=== PATIENT | male | born 1970 | race Caucasian/White ===

== ENCOUNTER 2017-06-09 10:24 | Emergency (ER) | payer MEDICARE, OTHER ==
[2017-06-09 10:47] VITALS: BP 155/100
--- NOTE | 2017-06-09 11:05 | UC ---
Dental HPI - HPI Summary HPI Summary: Social patient with past root canal on his first bicuspid on right side upper jaw. Feeling and Have since fallen off originally had discomfort before Thanksgiving was treated with antibiotics it resolved he did not seek dental follow-up last night he noticed pain and swelling in the right upper side of his jaw - History of Current Complaint Hx Obtained From: Patient Onset/Duration: Sudden Onset Severity: Mild Pain Intensity: 2 Pain Scale Used: 0-10 Numeric Aggravating Factor(s): Nothing Alleviating Factor(s): OTC Meds Related History: Previous Dental Care on Same Tooth, Swelling <Katarzyna Miguel - Last Filed: 06/09/17 13:27> <Barbara Maki - Last Filed: 06/10/17 20:52> - History of Current Complaint Chief Complaint: UCDentalProblem Stated Complaint: DENTAL PAIN Time Seen by Provider: 06/09/17 10:59 - Allergies/Home Medications Allergies/Adverse Reactions: Allergies Allergy/AdvReac Type Severity Reaction Status Date / Time morphine AdvReac Itching Verified 06/09/17 10:38 Seasonal Allergy Congestion Uncoded 06/09/17 10:38 Home Medications: Home Medications Acetaminophen TAB* [Tylenol TAB*] 3 tab PO ONCE PRN 06/09/17 [History Confirmed 06/09/17] DULoxetine DR CAP* [Cymbalta CAP*] 30 mg PO DAILY 06/09/17 [History Confirmed ] PMH/Surg Hx/FS Hx/Imm Hx Previously Healthy: No - muscular dystrophy Psychological History: Depression Other History Of: HIV - Surgical History Surgical History: Yes Surgery Procedure, Year, and Place: 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, appendectomy(ruptured appendix), cholecystectomy; Multiple Muscle Bioposy - Family History Known Family History: Positive: None - Social History Occupation: Disabled Lives: Alone - Lives alone with housemate for assistance Alcohol Use: Rare Substance Use Type: None Smoking Status (MU): Never Smoked Tobacco - Immunization History Most Recent Influenza Vaccination: 01/26 Most Recent Tetanus Shot: UTD Most Recent Pneumonia Vaccination: 2013 <Katarzyna Miguel - Last Filed: 06/09/17 13:27> Review of Systems Constitutional: Negative Skin: Negative Eyes: Negative ENT: Dental Pain - First upper right bicuspid Respiratory: Negative Cardiovascular: Negative Gastrointestinal: Negative Genitourinary: Negative Motor: Negative Neurovascular: Negative Musculoskeletal: Negative Neurological: Negative Psychological: Negative Is Patient Immunocompromised?: No All Other Systems Reviewed And Are Negative: Yes <Katarzyna Miguel - Last Filed: 06/09/17 13:27> Physical Exam Triage Information Reviewed: Yes Appearance: Well-Appearing, No Pain Distress, Well-Nourished Vital Signs: Initial Vital Signs Temp 97.9 F 06/09/17 10:40 Pulse 88 06/09/17 10:40 Resp 16 06/09/17 10:40 BP 155/100 06/09/17 10:40 Pulse Ox 100 06/09/17 10:40 Vital Signs Reviewed: Yes Eye Exam: Normal Eyes: Positive: Conjunctiva Clear ENT Exam: Normal ENT: Positive: Normal ENT inspection, Hearing grossly normal, Pharynx normal, Dental tenderness, Uvula midline. Negative: Nasal congestion, Trismus, Muffled voice, Hoarse voice, Sinus tenderness Dental Exam: Other Dental: Positive: Percussion Tenderness @ - Tooth #5, Gross Decay/Caries @ - Tooth #5 is missing filling in, Abscess @ - Right upper jaw Neck exam: Normal Neck: Positive: Supple, Nontender Respiratory Exam: Normal Respiratory: Positive: Chest non-tender, No respiratory distress, No accessory muscle use Cardiovascular Exam: Normal Cardiovascular: Positive: RRR, Pulses Normal, Brisk Capillary Refill Musculoskeletal Exam: Other Musculoskeletal: Positive: Strength Limited @ - Due to chronic muscular deterioration secondary to muscular dystrophy, ROM Limited @, Edema @ - Chronic bilateral Neurological Exam: Normal Neurological: Positive: Alert, Muscle Tone Normal - To patient's normal Psychological Exam: Normal Skin Exam: Normal <Katarzyna Miguel - Last Filed: 06/09/17 13:27> Vital Signs: Initial Vital Signs Temp 97.9 F 06/09/17 10:40 Pulse 88 06/09/17 10:40 Resp 16 06/09/17 10:40 BP 155/100 06/09/17 10:40 Pulse Ox 100 06/09/17 10:40 <Barbara Maki - Last Filed: 06/10/17 20:52> Dental Complaint Course/Dx - Course Course Of Treatment: Patient reports Good pain relief with Tylenol this morning. Will add Augmentin and warm compresses. Patient to follow up with [facility] as planned. Patient will follow blood pressure with primary care doctor Dr. Hillman - Differential Dx/Diagnosis Provider Diagnoses: Dental abscess right upper jaw, elevated blood pressure without history of hypertension <Katarzyna Miguel - Last Filed: 06/09/17 13:27> Discharge - Sign-Out/Discharge Documenting (check all that apply): Discharge - Billing Disposition and Condition Condition: STABLE Disposition: HOME <Katarzyna Miguel - Last Filed: 06/09/17 13:27> - Billing Disposition and Condition Condition: STABLE Disposition: HOME <Barbara Maki - Last Filed: 06/10/17 20:52> - Discharge Plan Condition: Stable Disposition: HOME Prescriptions: Amoxicillin/Clavulanate TAB* [Augmentin TAB 875*] 875 mg PO BID #20 tab Patient Education Materials: Dental Abscess (ED), Hypertension (ED), Toothache (ED) Referrals: Jim Galindo MD [Primary Care Provider] - 2 Weeks Additional Instructions: Call [facility] for an appointment as we discussed--- Attestation Statement User Type: Provider - I was available for consult. This patient was seen by the BETTE. The patient was not presented to, seen by, or examined by me. Ljj <Barbara Maki - Last Filed: 06/10/17 20:52>
== END 2017-06-09 11:12 | disposition home or self-care (01) ==
LOC: UCEAST 10:24
DX: K04.7 Periapical abscess without sinus (principal); R03.0 Elevated blood-pressure reading, without diagnosis of hypertension; F32.9 Major depressive disorder, single episode, unspecified; Z21 Asymptomatic human immunodeficiency virus [HIV] infection status; Z88.5 Allergy status to narcotic agent
CPT/HCPCS: 99212; G0463

== ENCOUNTER 2017-06-27 17:22 | Emergency (ER) | payer MEDICARE, OTHER ==
[2017-06-27 17:27] VITALS: BP 147/91
--- NOTE | 2017-06-27 19:26 | UC ---
Harris Burt Nikita, scribed for Mayo Mata MD on 06/27/17 at 1734 . HPI Wound/Suture Re-check - HPI Summary HPI Summary: This patient is a 46 year old M presenting to [facility] with a chief complaint of suture removal from his head (seen in the ED 06/17/17). The patient has no further complaints at this time. - History Of Current Complaint Chief Complaint: UCLaceration Stated Complaint: STAPLE REMOVAL Time Seen by Provider: 06/27/17 17:27 Hx Obtained From: Patient Onset/Duration: Sudden Onset, Lasting Days Pain Intensity: 0 Pain Scale Used: 0-10 Numeric Procedure Type: staple removal Surgery Date: 06/17/17 - Allergies/Home Medications Allergies/Adverse Reactions: Allergies Allergy/AdvReac Type Severity Reaction Status Date / Time morphine AdvReac Itching Verified 06/27/17 17:28 Seasonal Allergy Congestion Uncoded 06/27/17 17:28 Home Medications: Home Medications Lisinopril TAB* [Prinivil TAB 5 MG*] 1 tab PO DAILY 06/27/17 [History Confirmed 06/27/17] PMH/Surg Hx/FS Hx/Imm Hx - Additional Past Medical History Additional PMH: muscular dystrophy Other History Of: HIV - Surgical History Surgical History: Yes Surgery Procedure, Year, and Place: 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 GENERAL: ~Patient is a well-developed and nourished MALE. ~Patient is not in any acute respiratory distress. The patient is wheelchair bounded. HEAD AND FACE: Normocephalic. 6 carlo in the L temporal area, the laceration is well healed with no signs of infection. EYES: PERRLA, EOMI x 2. EARS: Hearing grossly intact. MOUTH: Oropharynx within normal limits. NECK: Supple, trachea is midline, no adenopathy, no JVD, no carotid bruit. CHEST: Symmetric, no tenderness at palpation LUNGS: Clear to auscultation bilaterally. No wheezing or crackles. CVS: Regular rate and rhythm, S1 and S2 present, no murmurs or gallops appreciated. ABDOMEN: Soft, non-tender. Bowel sounds are normal. No abdominal abnormal pulsations. EXTREMITIES: Full ROM in all major joints, no edema, no cyanosis or clubbing. NEURO: Alert and oriented x 3. No acute neurological deficits. Speech is normal and follows commands. SKIN: Dry and warm Triage Information Reviewed: Yes Vital Signs: Initial Vital Signs Temp 98.6 F 06/27/17 17:23 Pulse 94 06/27/17 17:23 Resp 18 06/27/17 17:23 BP 147/91 06/27/17 17:23 Pulse Ox 98 06/27/17 17:23 Vital Signs Reviewed: Yes Course/Dx - Course Course Of Treatment: This patient is a 46 year old M presenting to [facility] with a chief complaint of suture removal from his head (seen in the ED 06/17/17). Sutures were removed with no complications. The pt is hemodynamically stable, alert and oriented x3. Plan of care was discussed with the patient, and patient understands and agrees. All questions were answered to patient satisfaction. There were no further complaints or concerns. - Differential Dx - Laceration/Wound Provider Diagnoses: suture removal Discharge - Sign-Out/Discharge Documenting (check all that apply): Discharge - Discharge Plan Condition: Stable Disposition: HOME Referrals: Jim Galindo MD [Primary Care Provider] - The documentation as recorded by the Harris hassan Nikita accurately reflects the service I personally performed and the decisions made by , Mayo Mata MD.
== END 2017-06-27 17:48 | disposition home or self-care (01) ==
LOC: UCEAST 17:22
DX: S01.81XD Laceration without foreign body of other part of head, subsequent encounter (principal); X58.XXXD Exposure to other specified factors, subsequent encounter; G71.0 Muscular dystrophy; Z21 Asymptomatic human immunodeficiency virus [HIV] infection status; Z88.5 Allergy status to narcotic agent
CPT/HCPCS: 99211; G0463

== ENCOUNTER 2017-08-29 19:55 | Emergency (ER) | payer MEDICARE, OTHER ==
[2017-08-29] MEDS ORDERED: NS 0.9% 1000 ML* 1,000 ML IV ONE (20:18)
[2017-08-29 21:14] LABS: ABS Basophils 0 10^3/ul (0-0.2); ABS Eosinophils 0.1 10^3/ul (0-0.6); ABS Lymphocytes 2.5 10^3/ul (1.0-4.8); ABS Monocytes 1.1 10^3/ul (0-0.8); ABS Neutrophils 6.4 10^3/ul (1.5-7.7); ABS Nucleated RBC 0 10^3/ul; Hematocrit 34 % (42-52); Hemoglobin 11.6 g/dl (14.0-18.0); Lymphocyte % 24.4 % (25-47); Mean Corpuscular HGB Conc 34 g/dl (31-36); Mean Corpuscular Hemoglobin 26 pg (27-31); Mean Corpuscular Volume 77 fL (80-94); Nucleated Red Blood Cells % 0.1; Platelet Count 406 10^3/ul (150-450); Red Blood Count 4.45 10^6/ul (4.00-5.40); Red Cell Distribution Width 18 % (10.5-15); White Blood Count 10.1 10^3/ul (3.5-10.8)
[2017-08-29 21:26] LABS: EGFR Non-African American 121.4 (>60)
[2017-08-29 22:02] LABS: Urine Appearance Cloudy; Urine Blood Negative (Negative); Urine Color Yellow; Urine Ketones Negative (Negative); Urine Protein Negative (Negative); Urine Specific Gravity 1.027 (1.010-1.030); Urine Urobilinogen Negative (Negative)
[2017-08-29 22:54] VITALS: BP 121/66
--- NOTE | 2017-08-30 04:23 | ED ---
Misael Burt Tariq, scribed for Nicola Mack MD on 08/29/17 at 2147 . Dizziness - HPI Summary HPI Summary: A 47 y/o male KARINA presents to ED c/o dizziness. Pt was in his wheelchair when, during driving in car, fell out of the chair. He was leaning off the chair and attempted to stop falling. He was not able to get properly get back in his chair , he had assistance. When he sat up, pt experiences a LOC and dizziness. Additionally, he felt lightheaded and severe diaphoresis. Currently, he has no pain but has headache. Pt has muscular dystrophy. - History Of Current Complaint Chief Complaint: EDSyncope Stated Complaint: SYNCOPE Time Seen by Provider: 08/29/17 20:18 Hx Obtained From: Patient Onset/Duration: Resolved, Suddenly Timing: Minutes Severity Currently: None Character: Lightheaded, Dizzy Aggravating Factor(s): Nothing Alleviating Factor(s): Nothing Associated Signs And Symptoms: Positive: SOB, Other: - Dizziness - Allergies/Home Medications Allergies/Adverse Reactions: Allergies Allergy/AdvReac Type Severity Reaction Status Date / Time morphine AdvReac Itching Verified 06/27/17 17:28 Seasonal Allergy Congestion Uncoded 06/27/17 17:28 Home Medications: Home Medications Abacavir/Dolutegravir/Lamivudi [Triumeq 600-50-300 mg] 1 tab PO DAILY 08/29/17 [ History Confirmed 08/29/17] DULoxetine DR CAP* [Cymbalta CAP*] 90 mg PO DAILY 08/29/17 [History Confirmed ] Lisinopril/HCTZ 1012.5(NF) [Zestoretic 10/12.5(NF)] 1 tab PO DAILY 08/29/17 [ History Confirmed 08/29/17] PMH/Surg Hx/FS Hx/Imm Hx Endocrine/Hematology History: Reports: Hx Blood Disorders - HIV, Hx Anemia Denies: Hx Diabetes, Hx Thyroid Disease Cardiovascular History: Denies: Hx Congestive Heart Failure, Hx Hypertension Respiratory History: Reports: Hx Seasonal Allergies Denies: Hx Asthma, Hx Chronic Obstructive Pulmonary Disease (COPD) GI History: Denies: Hx Ulcer History: Denies: Hx Renal Disease Musculoskeletal History: Reports: Other Musculoskeletal History - Muscular dystrophy Sensory History: Reports: Hx Contacts or Glasses Opthamlomology History: Reports: Hx Contacts or Glasses Neurological History: Reports: Other Neuro Impairments/Disorders - muscular dystrophy Psychiatric History: Denies: Hx Depression - Surgical History Surgery Procedure, Year, and Place: 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, appendectomy(ruptured appendix), cholecystectomy; Multiple Muscle Bioposy Hx Anesthesia Reactions: Yes - nausea and a long time to wake up - Immunization History Date of Tetanus Vaccine: 2013 Infectious Disease History: Yes Infectious Disease History: Reports: Hx Human Immunodeficiency Virus (HIV), Hx Shingles Denies: Traveled Outside the [place] in Last 30 Days - Family History Known Family History: Positive: None, Cardiac Disease - Social History Alcohol Use: Rare Substance Use Type: Reports: None Smoking Status (MU): Never Smoked Tobacco Review of Systems Negative: Fever Positive: Other - diaphoresis Neurological: Other - POSITIVE; Dizziness, LOC Positive: Headache All Other Systems Reviewed And Are Negative: Yes Physical Exam - Summary Physical Exam Summary: Appearance: Well appearing, no pain distress Skin: warm, dry, reflects adequate perfusion. No pallor, Stasis dermatitis Head/face: normal Eyes: EOMI, GWYN ENT: normal. Moist mucous membranes Neck: supple, non-tender Respiratory: CTA, breath sounds present Cardiovascular: RRR, pulses symmetrical Abdomen: non-tender, soft Bowel Sounds: present Musculoskeletal: normal, strength/ROM intact. Lower extremity edema. Muscle wasting of both upper and lower extremities. Neuro: normal, sensory motor intact, A&Ox3 Triage Information Reviewed: Yes Vital Signs On Initial Exam: Initial Vitals Temp Pulse Resp BP Pulse Ox 97.6 F 95 18 111/74 100 08/29/17 19:56 08/29/17 19:56 08/29/17 19:56 08/29/17 19:56 08/29/17 19:56 Vital Signs Reviewed: Yes Diagnostics - Vital Signs Vital Signs Temp Pulse Resp BP Pulse Ox 08/29/17 19:56 97.6 F 95 18 111/74 100 - Laboratory Lab Results: Lab Results 08/29/17 08/29/17 08/29/17 Range/Units 20:55 20:55 20:55 WBC 10.1 (3.5-10.8) 10^3/ul RBC 4.45 (4.00-5.40) 10^6/ul Hgb 11.6 L (14.0-18.0) g/dl Hct 34 L (42-52) % MCV 77 L (80-94) fL MCH 26 L (27-31) pg MCHC 34 (31-36) g/dl RDW 18 H (10.5-15) % Plt Count 406 (150-450) 10^3/ul MPV 8.0 (7.4-10.4) um3 Neut % (Auto) 63.3 (38-83) % Lymph % (Auto) 24.4 L (25-47) % Ross % (Auto) 11.0 H (0-7) % Eos % (Auto) 1.0 (0-6) % Baso % (Auto) 0.3 (0-2) % Absolute Neuts (auto) 6.4 (1.5-7.7) 10^3/ul Absolute Lymphs (auto) 2.5 (1.0-4.8) 10^3/ul Absolute Monos (auto) 1.1 H (0-0.8) 10^3/ul Absolute Eos (auto) 0.1 (0-0.6) 10^3/ul Absolute Basos (auto) 0 (0-0.2) 10^3/ul Absolute Nucleated RBC 0 10^3/ul Nucleated RBC % 0.1 Sodium 136 (135-145) mmol/L Potassium 3.8 (3.5-5.0) mmol/L Chloride 102 (101-111) mmol/L Carbon Dioxide 23 (22-32) mmol/L Anion Gap 11 (2-11) mmol/L BUN 29 H (6-24) mg/dL Creatinine 0.70 (0.67-1.17) mg/dL Est GFR ( Amer) 156.1 (>60) Est GFR (Non-Af Amer) 121.4 (>60) BUN/Creatinine Ratio 41.4 H (8-20) Glucose 103 H (70-100) mg/dL Lactic Acid 1.0 (0.5-2.0) mmol/L Calcium 9.2 (8.6-10.3) mg/dL Magnesium 2.1 (1.9-2.7) mg/dL Total Bilirubin 0.50 (0.2-1.0) mg/dL AST 23 (13-39) U/L ALT 25 (7-52) U/L Alkaline Phosphatase 75 (34-104) U/L Troponin I 0.00 (<0.04) ng/mL Total Protein 7.5 (6.4-8.9) g/dL Albumin 4.0 (3.2-5.2) g/dL Globulin 3.5 (2-4) g/dL Albumin/Globulin Ratio 1.1 (1-3) TSH Pending Result Diagrams: 08/29/17 20:55 08/29/17 20:55 Lab Statement: Any lab studies that have been ordered have been reviewed, and results considered in the medical decision making process. - EKG 2020 Cardiac Rate: NL - 82 BPM EKG Rhythm: Sinus Rhythm ST Segment: Normal EKG Interpretation: First degree AV block, LVH criteria Dizzy Course/Dx - Course Course Of Treatment: Patient with muscular dystrophy who is trapped in an awkward position bent over for some time. When he was sat back up rate he had a syncopal event that likely was orthostatic. He is back to baseline. He recently started lisinopril which is possibly contributing. Laboratories are unremarkable. He is discharged in good condition to follow up with his primary care physician. - Diagnoses Provider Diagnoses: Muscular dystrophy, Orthostatic syncope Discharge - Sign-Out/Discharge Documenting (check all that apply): Discharge/Admit/Transfer - Discharge - Discharge Plan Condition: Improved Disposition: HOME Patient Education Materials: Syncope (ED) Referrals: Jim Galindo MD [Primary Care Provider] - Additional Instructions: Stay well-hydrated. If you ever find your self with postural changes like this go slowly. Return if worse, new symptoms or other concerns. Follow-up with your doctor tomorrow. - Billing Disposition and Condition Condition: IMPROVED Disposition: Home The documentation as recorded by the Misael hassan Tariq accurately reflects the service I personally performed and the decisions made by me, Nicola Mack MD.
== END 2017-08-29 22:32 | disposition home or self-care (01) ==
LOC: ED 19:55
DX: G71.0 Muscular dystrophy (principal); R55 Syncope and collapse; I44.0 Atrioventricular block, first degree; Z21 Asymptomatic human immunodeficiency virus [HIV] infection status; Z88.5 Allergy status to narcotic agent
CPT/HCPCS: 36415; 80053; 81003; 83605; 83735; 84443; 84484; 85025; 93005; 99282

== ENCOUNTER 2018-06-22 18:47 | Emergency (ER) | payer MEDICARE, OTHER, MEDICAID ==
[2018-06-22] MEDS ORDERED: Ondansetron INJ* 2 MG/ML VIAL IV ONE (19:00)
[2018-06-22] MEDS ORDERED: NS 0.9% 1000 ML** 1,000 ML IV ONE ×2 (19:00→23:10)
[2018-06-22] MEDS ORDERED: LORazepam TAB(*) 1 MG PO ONE (19:29)
[2018-06-22 20:27] LABS: Hematocrit 43 % (36-46); Hemoglobin 13.7 g/dL (14.0-18.0); Mean Corpuscular HGB Conc 32 g/dL (31-36); Mean Corpuscular Hemoglobin 24 pg (27-31); Mean Corpuscular Volume 75 fL (80-94); Mean Platelet Volume 7.6 fL (7.4-10.4); Platelet Count 377 10^3/uL (150-450); Red Blood Count 5.77 10^6 /uL (4.18-5.48); Red Cell Distribution Width 18 % (10.5-15); White Blood Count 10.5 10^3/uL (3.5-10.8)
[2018-06-22 20:39] LABS: Albumin 4.6 g/dL (3.2-5.2); Albumin/Globulin Ratio 1.1 (1-3); C Reactive Protein 14.69 mg/L (<8.01); Calcium 9.9 mg/dL (8.6-10.3); EGFR African American 216.6 (>60); Globulin 4.1 g/dL (2-4); Potassium 3.3 mmol/L (3.5-5.0); Total Bilirubin 0.3 mg/dL (0.2-1.0); Total Protein 8.7 g/dL (6.4-8.9)
[2018-06-22 20:53] LABS: ABS Basophils 0 10^3/ul (0-0.2); ABS Eosinophils 0.2 10^3/ul (0-0.6); ABS Lymphocytes 3.2 10^3/ul (1.0-4.8); ABS Monocytes 0.9 10^3/ul (0-0.8); ABS Neutrophils 6.2 10^3/ul (1.5-7.7); ABS Nucleated RBC 0 10^3/ul; Eosinophil % 1.5 %; Lymphocyte % 30.8 %; Nucleated Red Blood Cells % 0
[2018-06-22] MEDS ORDERED: Morphine 10 MG/ML VIAL (1 ml) IV ONE (20:53)
[2018-06-22] MEDS ORDERED: diPHENhydraMINE IV* 50 MG/ML 1 ml VIAL (BENADRYL) IV ONE (20:53)
[2018-06-22] MEDS ORDERED: Iohexol 300* (CONTRAST) 10 ML SDV IV ONE (21:00)
[2018-06-22] MEDS ORDERED: Potassium Chlor TAB* 20 MEQ TAB.ER PO ONE (23:50)
[2018-06-23] MEDS ORDERED: metroNIDAZOLE TAB* 250 MG PO ONE (00:06)
[2018-06-23] MEDS ORDERED: Ciprofloxacin TAB* 500 MG PO ONE (00:06)
[2018-06-23] MEDS ORDERED: HYDROcodone/ACETAMIN 5-325 MG* 1 TAB PO ONE (00:11)
--- NOTE | 2018-06-23 00:11 | ED ---
Nausea/Vomiting/Diarrhea HPI - HPI Summary HPI Summary: Patient complains of abdominal distention and left upper quadrant pain and diarrhea 2 days. History of muscular dystrophy. Abdominal pain described as constant, worse after eating. Patient states history of similar symptoms with prior Giardia infection a year ago. Denies contact exposure. Denies fever, cough, sore throat, CP, N/V, change in urine. Medical history is HIV, HTN, muscular dystrophy. Abdominal surgical history is and renal tumor removal, cholecystectomy, appendectomy. - History of Current Complaint Chief Complaint: EDNauseaVomitDiarrh Stated Complaint: NAUSEA, DIARRHEA PER EMS Time Seen by Provider: 06/22/18 18:58 Hx Obtained From: Patient Onset/Duration: Sudden Onset, Lasting Days Severity Initially: Mild Severity Currently: Mild Pain Intensity: 3 Pain Scale Used: 0-10 Numeric Location: Diffuse Character: Dull, Cramping Aggravating Factor(s): Food Alleviating Factor(s): Nothing Nausea/Vomiting Presence: Nauseated, Vomiting Vomiting Frequency: Every 3-4 hours Vomiting Characteristics: Nonbilious Diarrhea Presence: Yes Diarrhea Frequency: Every 3-4 hours Diarrhea Characteristics: Watery - Allergies/Home Medications Allergies/Adverse Reactions: Allergies Allergy/AdvReac Type Severity Reaction Status Date / Time morphine AdvReac Itching Verified 06/22/18 18:49 Seasonal Allergy Congestion Uncoded 06/22/18 18:49 PMH/Surg Hx/FS Hx/Imm Hx Endocrine/Hematology History: Reports: Hx Blood Disorders - HIV, Hx Anemia Denies: Hx Diabetes, Hx Thyroid Disease Cardiovascular History: Denies: Hx Congestive Heart Failure, Hx Hypertension Respiratory History: Reports: Hx Seasonal Allergies Denies: Hx Asthma, Hx Chronic Obstructive Pulmonary Disease (COPD) GI History: Denies: Hx Ulcer History: Denies: Hx Renal Disease Musculoskeletal History: Reports: Other Musculoskeletal History - Muscular dystrophy Sensory History: Reports: Hx Contacts or Glasses Opthamlomology History: Reports: Hx Contacts or Glasses Neurological History: Reports: Other Neuro Impairments/Disorders - muscular dystrophy Psychiatric History: Denies: Hx Depression - Surgical History Surgery Procedure, Year, and Place: 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, appendectomy(ruptured appendix), cholecystectomy; Multiple Muscle Bioposy Hx Anesthesia Reactions: Yes - nausea and a long time to wake up - Immunization History Date of Tetanus Vaccine: 2013 Infectious Disease History: No Infectious Disease History: Reports: Hx Human Immunodeficiency Virus (HIV), Hx Shingles Denies: Traveled Outside the [place] in Last 30 Days - Family History Known Family History: Positive: None, Cardiac Disease - Social History Alcohol Use: Rare Substance Use Type: Reports: None Smoking Status (MU): Never Smoked Tobacco Review of Systems Constitutional: Negative Eyes: Negative ENT: Negative Cardiovascular: Negative Respiratory: Negative Positive: Abdominal Pain, Vomiting, Diarrhea Genitourinary: Negative Musculoskeletal: Negative Skin: Negative Neurological: Negative Psychological: Normal All Other Systems Reviewed And Are Negative: Yes Physical Exam - Summary Physical Exam Summary: Abdomen diffusely tender, mildly worse with palpation and left upper quadrant. Lung sounds clear to auscultation bilaterally. RRR. Triage Information Reviewed: Yes Vital Signs On Initial Exam: Initial Vitals Temp Pulse Resp BP Pulse Ox 97.4 F 75 18 148/98 97 06/22/18 18:48 06/22/18 18:48 06/22/18 18:48 06/22/18 18:48 06/22/18 18:48 Vital Signs Reviewed: Yes Appearance: Positive: Well-Appearing Skin: Positive: Warm Head/Face: Positive: Normal Head/Face Inspection Eyes: Positive: Normal Neck: Positive: Supple Respiratory/Lung Sounds: Positive: Clear to Auscultation Cardiovascular: Positive: Normal Abdomen Description: Positive: Nontender Musculoskeletal: Positive: Normal Neurological: Positive: Normal Psychiatric: Positive: Normal AVPU Assessment: Alert - Reinier Coma Scale Best Eye Response: 4 - Spontaneous Best Motor Response: 6 - Obeys Commands Best Verbal Response: 5 - Oriented Coma Scale Total: 15 Diagnostics - Vital Signs Vital Signs Temp Pulse Resp BP Pulse Ox 06/22/18 23:35 86 23 126/83 99 06/22/18 23:20 81 13 113/74 95 06/22/18 23:05 84 14 114/78 95 06/22/18 23:00 87 14 94 06/22/18 22:50 90 14 118/82 94 06/22/18 22:35 87 13 124/80 94 06/22/18 22:20 84 13 120/76 95 06/22/18 22:05 83 13 132/82 97 06/22/18 22:01 81 13 97 06/22/18 21:52 79 13 150/101 98 06/22/18 21:50 78 16 177/103 99 06/22/18 21:35 84 14 159/90 99 06/22/18 21:05 77 16 161/109 100 06/22/18 21:02 18 06/22/18 21:01 76 18 100 06/22/18 20:01 75 11 100 06/22/18 19:34 20 06/22/18 19:00 74 14 100 06/22/18 18:53 75 19 143/90 100 06/22/18 18:48 97.4 F 75 18 148/98 97 - Laboratory Lab Results: Lab Results 06/22/18 06/22/18 Range/Units 20:13 20:13 WBC 10.5 (3.5-10.8) 10^3/uL RBC 5.77 H (4.18-5.48) 10^6 /uL Hgb 13.7 L (14.0-18.0) g/dL Hct 43 (36-46) % MCV 75 L (80-94) fL MCH 24 L (27-31) pg MCHC 32 (31-36) g/dL RDW 18 H (10.5-15) % Plt Count 377 (150-450) 10^3/uL MPV 7.6 (7.4-10.4) fL Neut % (Auto) 59.1 % Lymph % (Auto) 30.8 % Bladen % (Auto) 8.3 % Eos % (Auto) 1.5 % Baso % (Auto) 0.3 % Absolute Neuts (auto) 6.2 (1.5-7.7) 10^3/ul Absolute Lymphs (auto) 3.2 (1.0-4.8) 10^3/ul Absolute Monos (auto) 0.9 H (0-0.8) 10^3/ul Absolute Eos (auto) 0.2 (0-0.6) 10^3/ul Absolute Basos (auto) 0 (0-0.2) 10^3/ul Absolute Nucleated RBC 0 10^3/ul Nucleated RBC % 0 Sodium 138 (135-145) mmol/L Potassium 3.3 L (3.5-5.0) mmol/L Chloride 109 (101-111) mmol/L Carbon Dioxide 21 L (22-32) mmol/L Anion Gap 8 (2-11) mmol/L BUN 18 (6-24) mg/dL Creatinine 0.50 L (0.67-1.17) mg/dL Est GFR ( Amer) 216.6 (>60) Est GFR (Non-Af Amer) 179.0 (>60) BUN/Creatinine Ratio 36.0 H (8-20) Glucose 92 (70-100) mg/dL Calcium 9.9 (8.6-10.3) mg/dL Total Bilirubin 0.30 (0.2-1.0) mg/dL AST 23 (13-39) U/L ALT 34 (7-52) U/L Alkaline Phosphatase 111 H (34-104) U/L C-Reactive Protein 14.69 H (<8.01) mg/L Total Protein 8.7 (6.4-8.9) g/dL Albumin 4.6 (3.2-5.2) g/dL Globulin 4.1 H (2-4) g/dL Albumin/Globulin Ratio 1.1 (1-3) Result Diagrams: 06/22/18 20:13 06/22/18 20:13 Lab Statement: Any lab studies that have been ordered have been reviewed, and results considered in the medical decision making process. Naus/Vom/Diarrhea Course/Dx - Course Course Of Treatment: Patient complains of abdominal distention and left upper quadrant pain and diarrhea 2 days. History of muscular dystrophy. Abdominal pain described as constant, worse after eating. Patient states history of similar symptoms with prior Giardia infection a year ago. Denies contact exposure. Denies fever, cough, sore throat, CP, N/V, change in urine. Medical history is HIV, HTN, muscular dystrophy. Abdominal surgical history is and renal tumor removal, cholecystectomy, appendectomy. Physical exam:Abdomen diffusely tender, mildly worse with palpation and left upper quadrant. Lung sounds clear to auscultation bilaterally. RRR. Vital signs within normal limits. Potassium 3.3. BUN/creatinine ratio 36. Labs otherwise unremarkable. CT abdomen and pelvis positive for enterocolitis. Patient pain resolved with morphine. 2 L of normal saline administered. Stool sample taken and will be cultured. Cultures pending. Patient started on Cipro, Flagyl. Rx for oxycodone for pain. - Differential Dx/Diagnosis Provider Diagnosis: Enterocolitis Condition At Discharge: Stable Discharge - Sign-Out/Discharge Documenting (check all that apply): Patient Departure Patient Received Moderate/Deep Sedation with Procedure: No - Discharge Plan Condition: Stable Disposition: HOME Prescriptions: Ciprofloxacin HCl [Cipro] 500 mg PO BID 10 Days #20 tablet metroNIDAZOLE [Flagyl 500 MG TAB] 500 mg PO TID 10 Days #30 tab Oxycodone HCl 5 mg PO Q6H PRN 3 Days #12 tablet MDD 4 tabs PRN Reason: Pain Patient Education Materials: Colitis (ED) Referrals: Jim Galindo MD [Primary Care Provider] - Additional Instructions: Take Flagyl and Cipro as directed. Should return for any fluids to maintain hydration. Return to the ED for any new or worsening symptoms. - Billing Disposition and Condition Condition: STABLE Disposition: Home
[2018-06-23] MEDS ORDERED: oxyCODONE TAB* 5 MG TAB PO ONE (00:15)
[2018-06-23] MEDS ORDERED: Potassium Chloride LIQUID* 20 MEQ PACKET ONE (00:31)
[2018-06-23] MEDS ORDERED: Potassium Chloride LIQUID* 20 MEQ PACKET PO ONE (00:32)
[2018-06-23 00:44] VITALS: BP 120/68
== END 2018-06-23 03:23 | disposition home or self-care (01) ==
LOC: ED 18:47
DX: K52.9 Noninfective gastroenteritis and colitis, unspecified (principal); B20 Human immunodeficiency virus [HIV] disease; D64.9 Anemia, unspecified; G71.00 Muscular dystrophy, unspecified; Z88.5 Allergy status to narcotic agent
CPT/HCPCS: 36415; 74177; 80053; 83630; 85025; 86140; 87045; 87046; 87077; 87328; 87329; 87493; 87899; 96361; 96374; 99285; A9270-GY; J1200; J2270; J2405; Q9967

== ENCOUNTER 2022-06-06 12:23 | Observation (INO) ==
[2022-06-06] MEDS ORDERED: Labetalol IV 5 MG/ML 20 ml VIAL IV PUSH ONE (15:11)
[2022-06-06 15:55] LABS: ABS Eosinophils 0.1 10^3/ul (0-0.6); ABS Lymphocytes 2.9 10^3/ul (1.0-4.8); ABS Monocytes 0.6 10^3/ul (0-0.8); ABS Neutrophils 3.4 10^3/ul (1.5-7.7); Eosinophil % 1.3 %; Hematocrit 46 % (42-52); Hemoglobin 14.3 g/dL (14.0-18.0); Lymphocyte % 41.4 %; Mean Corpuscular Hemoglobin 25 pg (27-31); Mean Corpuscular Hgb Conc 31 g/dL (31-36); Mean Corpuscular Volume 80 fL (80-94); Mean Platelet Volume 7.7 fL (7.4-10.4); Platelet Count 366 10^3/uL (150-450); Red Blood Count 5.72 10^6 /uL (4.18-5.48); Red Cell Distribution Width 16 % (10-15)
[2022-06-06 16:38] LABS: Albumin 4.3 g/dL (3.2-5.2); Albumin/Globulin Ratio 1.4 (1-3); Calcium 9.3 mg/dL (8.6-10.3); Creatinine, Serum 0.4 mg/dL (0.67-1.17); Magnesium 2.2 mg/dL (1.9-2.7); Potassium 4.6 mmol/L (3.5-5.0); Total Bilirubin 0.3 mg/dL (0.2-1.0); Total Protein 7.3 g/dL (6.4-8.9); eGFR CKD-EPI 132.9 (>60)
[2022-06-06 16:52] LABS: TSH Ultra Thyroid Stim Horm 6.24 mcIU/mL (0.34-5.60)
[2022-06-06 17:28] LABS: High Sensitivity Troponin 1 Hr 14 pg/mL (<20)
[2022-06-06] MEDS ORDERED: Polyethylene Glycol 3350 17 GM PACKET PO PRN (19:45)
[2022-06-06] MEDS ORDERED: Enoxaparin 40 MG/0.4 ML SYR SUBCUT SCH (21:00)
[2022-06-06] MEDS ORDERED: Aspirin EC 81 mg TAB.EC (enteric coated) PO SCH (21:00)
[2022-06-06] MEDS: Fluticasone NASAL SPRAY 50MCG 16 gm SPRAY BTL BOTH NARES SCH (22:43)
[2022-06-06] MEDS: Oxymetazoline 0.05% NASAL SPR 15 ML BTL BOTH NARES SCH (22:44)
[2022-06-06] MEDS ORDERED: hydrALAZINE 20 mg/ml 1 ML Vial IV IV SLOW PU PRN (23:09)
[2022-06-07 06:00] LABS: ABS Eosinophils 0.1 10^3/ul (0-0.6); ABS Lymphocytes 2.6 10^3/ul (1.0-4.8); ABS Monocytes 0.5 10^3/ul (0-0.8); ABS Neutrophils 2.9 10^3/ul (1.5-7.7); Eosinophil % 1.5 %; Hematocrit 41 % (42-52); Hemoglobin 13.2 g/dL (14.0-18.0); Lymphocyte % 42.5 %; Mean Corpuscular Hemoglobin 25 pg (27-31); Mean Corpuscular Hgb Conc 32 g/dL (31-36); Mean Corpuscular Volume 79 fL (80-94); Mean Platelet Volume 7.6 fL (7.4-10.4); Nucleated Red Blood Cells % 0.1; Platelet Count 320 10^3/uL (150-450); Red Blood Count 5.21 10^6 /uL (4.18-5.48); Red Cell Distribution Width 16 % (10-15); White Blood Count 6.1 10^3/uL (3.5-10.8)
[2022-06-07 06:43] LABS: Calcium 8.6 mg/dL (8.6-10.3); Creatinine, Serum 0.37 mg/dL (0.67-1.17); HDL Cholesterol 25.6 mg/dL; Magnesium 2.2 mg/dL (1.9-2.7); Potassium 3.9 mmol/L (3.5-5.0); eGFR CKD-EPI 136.1 (>60)
[2022-06-07] MEDS ORDERED: DULoxetine DR 30 mg CAP PO SCH (09:00)
[2022-06-07] MEDS: Oxymetazoline 0.05% NASAL SPR 15 ML BTL BOTH NARES SCH (09:17)
[2022-06-07] MEDS: Fluticasone NASAL SPRAY 50MCG 16 gm SPRAY BTL BOTH NARES SCH (09:19)
[2022-06-07 10:22] LABS: Free T4 1.01 ng/dL (0.61-1.12)
[2022-06-07 14:56] VITALS: BP 140/87
[2022-06-07] MEDS ORDERED: Sulfur Hexaflouride MICROSPHR 25 MG VIAL ONE (15:22)
== END 2022-06-07 17:20 | disposition home or self-care (01) ==
LOC: MEDTELE 12:23 → ED 12:23 → SUATTDRO 19:08 → MEDTELE 20:52 → ED 20:53
PROVIDERS: ADMIT Internal Medicine; ATTEND Internal Medicine

== ENCOUNTER 2024-04-07 09:45 | Inpatient (IN) ==
[2024-04-07 10:35] LABS: ABS Eosinophils 0.1 10^3/uL (0.0-0.5); ABS Lymphocytes 2.2 10^3/uL (1.0-4.8); ABS Monocytes 0.5 10^3/uL (0.0-1.1); ABS Neutrophils 4.2 10^3/uL (1.5-7.6); ABS Nucleated RBC 0.01 10^3/ul; Eosinophil % 0.8 %; Hematocrit 36.8 % (38-53); Hemoglobin 11.8 g/dL (13.2-16.3); Lymphocyte % 32.1 %; Mean Corpuscular Hgb Conc 32.2 g/dL (31-36); Mean Corpuscular Volume 80.8 fL (80-97); Mean Platelet Volume 7.4 fL (7.5-11.2); Nucleated Red Blood Cells % 0.1 %/100WBC (0.0-0.8); Platelet Count 343 10^3/uL (150-450); Red Blood Count 4.55 10^6/uL (4.06-5.63); Red Cell Distribution Width 16.1 % (12-17)
[2024-04-07 10:43] LABS: INR 1.12 (0.85-1.14)
[2024-04-07 11:05] LABS: Albumin 3.9 g/dL (3.5-5.7); Albumin/Globulin Ratio 1.3 (1-3); Creatinine, Serum 0.4 mg/dL (0.67-1.17); Globulin 2.9 g/dL (2-4); Potassium 4.8 mmol/L (3.5-5.0); Total Bilirubin 0.3 mg/dL (0.2-1.0); Total Protein 6.8 g/dL (6.4-8.9); eGFR CKD-EPI 131.3 (>60)
[2024-04-07] MEDS: Iohexol 350 (CONTRAST) 500 ML MDV IV ONE (11:52)
[2024-04-07 12:09] LABS: High Sensitivity Troponin 1 Hr 1759 pg/mL (<20)
[2024-04-07] MEDS: Lactated Ringers 1000 ml BAG IV.FLUID IV ONE (12:38)
[2024-04-07] MEDS: Heparin DRIP 25,000 UNITS BAG 25,000 UNITS/250 ML BAG IV SCH (12:46)
[2024-04-07] MEDS: Heparin 5000 UNITS/ML 1 mL VIAL IV SCH (12:46)
[2024-04-07] MEDS ORDERED: Sulfur Hexaflouride MICROSPHR 25 MG VIAL IV PRN (13:17)
[2024-04-07] MEDS: DOPamine 800 MG/250 ML IVPREMX 800 MG/250 ML ML CENTR SCH (13:25)
[2024-04-07] MEDS: Atropine 0.1 MG/ML 10 ml SYR (1 mg) IV PUSH ONE (13:33)
[2024-04-07 13:49] LABS: HDL Cholesterol 27.8 mg/dL; Magnesium 2.1 mg/dL (1.9-2.7)
[2024-04-07] MEDS ORDERED: Ondansetron 4 mg VIAL 2 MG/ML 2 ml VIAL ONE ×2 (13:49→15:17)
[2024-04-07] MEDS ORDERED: niCARdipine 0.1MG/ML IVPREMIX 20 MG/200 ML BAG IV ONE (13:50)
[2024-04-07] MEDS ORDERED: Lidocaine 1% MPF 5 ML VIAL ONE (13:50)
[2024-04-07] MEDS ORDERED: Heparin 1,000 UNIT/ML 10 ml (10,000 UNITS) CATHLAB/DIALYSIS ONE (13:50)
[2024-04-07] MEDS ORDERED: Norepinephrine 32MCG/ML D5WBAG 8,000 MCG/250 ML BAG IV ONE (13:51)
[2024-04-07] MEDS ORDERED: nitroGLYCERIN DRIP 50,000 MCG/250 ML BTL ONE (13:51)
[2024-04-07] MEDS ORDERED: Heparin 2 UNITS/ML 1000 mls 3,000 ML IV ONE (13:51)
[2024-04-07] MEDS ORDERED: Iohexol 350 (CONTRAST) 200 ML MDV IV ONE (13:52)
[2024-04-07] MEDS ORDERED: Midazolam 5 mg/5 ml VIAL 1 mg/ml 5 ml VIAL (5 mg) ONE (13:53)
[2024-04-07] MEDS ORDERED: fentaNYL 100 mcg/2 ml 50 MCG/ML VIAL ONE ×2 (13:53→14:45)
[2024-04-07] MEDS: Ondansetron 4 mg VIAL 2 MG/ML 2 ml VIAL IV ONE (13:55)
[2024-04-07] MEDS ORDERED: Eptifibatide IV (Load dose) 2 MG/ML 10 ml VIAL ONE ×2 (14:40→14:52)
[2024-04-07] MEDS ORDERED: Prasugrel 10 mg TAB (NF) ONE (15:28)
[2024-04-07] MEDS: Norepinephrine 32MCG/ML D5WBAG 8,000 MCG/250 ML BAG IV SCH (15:52)
[2024-04-07] MEDS: Prasugrel 10 mg TAB (NF) PO ONE (16:57)
[2024-04-07] MEDS: Amiodarone 150 mg IVPREMIX 150 MG/100 ML BAG IV ONE (17:45)
[2024-04-07] MEDS: Amiodarone 360 MG IVPREMIX 360 MG/200 ML BAG IV SCH ×2 (17:55→23:47)
[2024-04-07] MEDS: fentaNYL 100 mcg/2 ml 50 MCG/ML VIAL IV SLOW PU ONE (19:13)
[2024-04-07] MEDS: Midazolam 10 mg/10 ml VIAL 1 mg/ml 10 ml VIAL (10 mg) IV SLOW PU ONE (19:13)
[2024-04-07] MEDS ORDERED: LORazepam 2 MG/ML 1 mL Syringe IV ONE (19:59)
[2024-04-07] MEDS: .Amiodarone 24HR ONLY IV Protocol Order Note IV ONE (20:45)
[2024-04-07] MEDS: LORazepam 2 mg VIAL 1 ml IV PUSH ONE (23:24)
[2024-04-08] MEDS: Acetaminophen IV 1 GM/100ML 1,000 MG/100 ML BAG IV ONE (00:28)
[2024-04-08 03:40] LABS: Hemoglobin 11.1 g/dL (13.2-16.3)
[2024-04-08] MEDS ORDERED: Lorazepam PYXIS KEY PRN ×2 (04:03→19:57)
[2024-04-08 04:05] LABS: ABS Eosinophils 0.1 10^3/uL (0.0-0.5); ABS Monocytes 0.6 10^3/uL (0.0-1.1); ABS Neutrophils 5.9 10^3/uL (1.5-7.6); Eosinophil % 0.5 %; Hematocrit 33.8 % (38-53); Hemoglobin 11.1 g/dL (13.2-16.3); Lymphocyte % 31.2 %; Mean Corpuscular Hemoglobin 26.3 pg (27-33); Mean Corpuscular Hgb Conc 32.9 g/dL (31-36); Mean Corpuscular Volume 79.9 fL (80-97); Mean Platelet Volume 7.6 fL (7.5-11.2); Platelet Count 327 10^3/uL (150-450); Red Blood Count 4.23 10^6/uL (4.06-5.63); Red Cell Distribution Width 15.9 % (12-17); White Blood Count 9.6 10^3/uL (3.6-10.2)
[2024-04-08] MEDS: LORazepam 2 mg VIAL 1 ml IV PUSH ONE ×2 (04:07→20:06)
[2024-04-08 04:23] LABS: Albumin 3.4 g/dL (3.5-5.7); Albumin/Globulin Ratio 1.5 (1-3); Calcium 8.2 mg/dL (8.6-10.3); Creatinine, Serum 0.38 mg/dL (0.67-1.17); Globulin 2.3 g/dL (2-4); Magnesium 1.8 mg/dL (1.9-2.7); Potassium 4.1 mmol/L (3.5-5.0); Total Bilirubin 0.3 mg/dL (0.2-1.0); Total Protein 5.7 g/dL (6.4-8.9); eGFR CKD-EPI 133.3 (>60)
[2024-04-08] MEDS: LORazepam 2 mg VIAL 1 ml ONE (04:27)
[2024-04-08] MEDS: Sulfur Hexaflouride MICROSPHR 25 MG VIAL IV PRN (08:09)
[2024-04-08] MEDS ORDERED: Sulfur Hexaflouride MICROSPHR 25 MG VIAL ONE (09:13)
[2024-04-08] MEDS: CMC:Prasugrel 10 mg TAB (NF) PO SCH (10:09)
[2024-04-08] MEDS: fentaNYL 100 mcg/2 ml 50 MCG/ML VIAL IV SLOW PU PRN (10:43)
[2024-04-08] MEDS: LAMIVUDINE PO SCH (12:34)
[2024-04-08] MEDS: DOLUTEGRAVIR SODIUM PO SCH (12:34)
[2024-04-09 04:16] VITALS: BP 127/82
[2024-04-09 04:42] LABS: ABS Eosinophils 0.1 10^3/uL (0.0-0.5); ABS Lymphocytes 1.7 10^3/uL (1.0-4.8); ABS Monocytes 0.6 10^3/uL (0.0-1.1); ABS Neutrophils 4.5 10^3/uL (1.5-7.6); Eosinophil % 1.3 %; Hematocrit 33.3 % (38-53); Lymphocyte % 24.5 %; Mean Corpuscular Hemoglobin 26.3 pg (27-33); Mean Corpuscular Volume 79.7 fL (80-97); Mean Platelet Volume 7.4 fL (7.5-11.2); Platelet Count 322 10^3/uL (150-450); Red Blood Count 4.18 10^6/uL (4.06-5.63); Red Cell Distribution Width 15.7 % (12-17)
[2024-04-09 05:41] LABS: Anion Gap 7 mmol/L (2-16); Blood Urea Nitrogen 12 mg/dL (6-24); CO2 Carbon Dioxide 25 mmol/L (22-32); Chloride 104 mmol/L (101-111); Creatinine, Serum < 0.30 mg/dL (0.67-1.17); Glucose 84 mg/dL (70-100); Magnesium 1.8 mg/dL (1.9-2.7); Sodium 136 mmol/L (135-145); eGFR CKD-EPI 143.2 (>60)
[2024-04-09] MEDS: Magnesium Sulfate 2 gm BAG 2 GM/50 ML BAG IVPB ONE (08:07)
== END 2024-04-09 12:00 | disposition home or self-care (01) | DRG 321 ==
LOC: EDHOLD 09:45 → ED 09:45 → SUATTDRO 13:43 → EDHOLD 13:43 → AA 13:55 → ICU 15:57
PROVIDERS: ADMIT Internal Medicine Critical Care Medicine; ATTEND Student in an Organized Health Care Education/Training Program